=== PATIENT | female | born 1995 | race Two or more races ===

== ENCOUNTER → 2019-06-19 | Outpatient (CLI) | payer OTHER | END | disposition home or self-care (01) | LOC: PRENATAL 08:30 | DX: O98.912 Unspecified maternal infectious and parasitic disease complicating pregnancy, second trimester (principal); O34.211 Maternal care for low transverse scar from previous cesarean delivery; O35.3XX0 Maternal care for (suspected) damage to fetus from viral disease in mother, not applicable or unspecified ==

== ENCOUNTER → 2019-09-11 | Outpatient (CLI) | payer OTHER | END | disposition home or self-care (01) | LOC: PRENATAL 08-14 09:30 | DX: O26.843 Uterine size-date discrepancy, third trimester (principal); O98.913 Unspecified maternal infectious and parasitic disease complicating pregnancy, third trimester; O34.219 Maternal care for unspecified type scar from previous cesarean delivery ==

== ENCOUNTER → 2019-10-23 | Outpatient (CLI) | payer OTHER | END | disposition home or self-care (01) | LOC: PRENATAL 12:17 | DX: O26.843 Uterine size-date discrepancy, third trimester (principal); O34.211 Maternal care for low transverse scar from previous cesarean delivery; O35.0XX1 Maternal care for (suspected) central nervous system malformation in fetus, fetus 1; O98.913 Unspecified maternal infectious and parasitic disease complicating pregnancy, third trimester; O36.8131 Decreased fetal movements, third trimester, fetus 1 ==